=== PATIENT | female | born 1970 | race Two or more races ===

== ENCOUNTER 2017-02-28 09:48 | Emergency (ER) | payer OTHER ==
[2017-02-28 09:53] VITALS: BMI 29.2
[2017-02-28] MEDS ORDERED: SODIUM CHLORIDE 1,000 ML IV STA (10:30)
--- NOTE | 2017-02-28 10:34 | PDOC ---
History of Present Illness - General Chief Complaint: Pain, Acute Stated Complaint: ABD PAIN Time Seen by Provider: 02/28/17 10:09 - History of Present Illness Initial Comments: 02/28/17 10:28 46 yo F with no significant pmh who presents with 1 week of lower abdominal pain. Pt. reports intermittent spasmodic, crampy, lower abdominal pain Q2 hours lasting for seconds with spontaneous resolution. No identifiable triggers or alleviators. Denies N/V, fevers/chills, constipation/diarrhea, chest pain, SOB, back pain, rash, arthralgias. Attempted pepto bismol with no relief of symptoms. Recently returned from trip to [place] 9 days ago. States that in [place] she drank bottled/filtered water everyday. Ate chicken and steak. Denies h/o GI procedures. Past History - Past Medical History Allergies/Adverse Reactions: Allergies Allergy/AdvReac Type Severity Reaction Status Date / Time No Known Allergies Allergy Verified 02/28/17 09:51 Home Medications: Ambulatory Orders Ciprofloxacin [Cipro -] 500 mg PO Q12H #6 tablet 02/28/17 Other medical history: denies - Immunization History Immunization Up to Date: Yes - Psycho/Social/Smoking Cessation Hx Anxiety: No Suicidal Ideation: No Smoking History: Never smoked Have you smoked in the past 12 months: No Hx Alcohol Use: No Drug/Substance Use Hx: No Substance Use Type: None Review of Systems - Review of Systems Comments:: 02/28/17 10:41 GENERAL/CONSTITUTIONAL: No fever or chills. No weakness. HEAD, EYES, EARS, NOSE AND THROAT: No change in vision. No ear pain or discharge. No sore throat.- CARDIOVASCULAR: No chest pain or shortness of breath RESPIRATORY: No cough, wheezing, or hemoptysis. GASTROINTESTINAL:+ Abdominal pain and nausea, vomiting, diarrhea or constipation. GENITOURINARY: No dysuria, frequency, or change in urination. MUSCULOSKELETAL: No joint or muscle swelling or pain. No neck or back pain. SKIN: No rash NEUROLOGIC: No headache, vertigo, loss of consciousness, or change in strength/ sensation. ENDOCRINE: No increased thirst. No abnormal weight change HEMATOLOGIC/LYMPHATIC: No anemia, easy bleeding, or history of blood clots. ALLERGIC/IMMUNOLOGIC: No hives or skin allergy. *Physical Exam - Vital Signs Last Vital Signs Temp Pulse Resp BP Pulse Ox 98.3 F 58 L 18 119/79 100 02/28/17 09:51 02/28/17 09:51 02/28/17 09:51 02/28/17 09:51 02/28/17 09:51 - Physical Exam Comments: 02/28/17 10:42 GENERAL: Awake, alert, and fully oriented, in no acute distress HEAD: No signs of trauma, normocephalic, atraumatic EYES: PERRLA, EOMI, sclera anicteric, conjunctiva clear ENT: Auricles normal inspection, hearing grossly normal, nares patent, oropharynx clear without exudates. Moist mucosa NECK: Normal ROM, supple, no lymphadenopathy, JVD, or masses LUNGS: No distress, speaks full sentences, clear to auscultation bilaterally HEART: Regular rate and rhythm, normal S1 and S2, no murmurs, rubs or gallops, peripheral pulses normal and equal bilaterally. ABDOMEN: TTP RLQ. Soft, nontender, normoactive bowel sounds. No guarding, rigidity, no rebound. No masses EXTREMITIES: Normal inspection, Normal range of motion, no edema. No clubbing or cyanosis. SKIN: Warm, Dry, normal turgor, no rashes or lesions noted. Medical Decision Making - Medical Decision Making 02/28/17 10:43 46 yo F with no significant pmh who presents with 1 week of lower abdominal pain. Pt. reports intermittent spasmodic, crampy, lower abdominal pain Q2 hours lasting for seconds with spontaneous resolution. Associated with soft stools and mild nausea. Physical exam reveals RLQ ttp. Recently returned from trip to [place] 9 days ago. States that in [place] she drank bottled/filtered water everyday. Ate chicken and steak. Denies h/o GI procedures. DDx: Travelers diarrhea, appendicitis ED Course: CBC CMP UA Urine preg 02/28/17 11:14 WBC: 3.2 02/28/17 11:17 UA: Neg 02/28/17 11:22 CMP Unremarkable Stable discharge *DC/Admit/Observation/Transfer Diagnosis at time of Disposition: Travelers' diarrhea - Discharge Dispostion Disposition: HOME Condition at time of disposition: Improved Admit: No - Prescriptions Prescriptions: Ciprofloxacin [Cipro -] 500 mg PO Q12H #6 tablet - Patient Instructions Additional Instructions: Please take antibiotic as prescribed. Return to ED if you experience worsening abdominal pain , blood in stool, or worsening symptoms.
[2017-02-28 10:50] LABS: BASOPHIL 0.5 % (0-2.0); EOSINOPHIL 1.3 % (0-4.5); MCH 26.1 pg (25.7-33.7); MCHC 32.3 g/dl (32.0-36.0); MEAN CELL VOLUME 80.8 fl (80-96); MEAN PLT VOLUME 8.1 fl (7.5-11.1); NEUTROPHILS 59.1 % (42.8-82.8); PLATELET COUNT 303 K/MM3 (134-434); RDW 15.8 % (11.6-15.6); WHITE BLOOD COUNT 3.2 K/mm3 (4.0-10.0)
[2017-02-28 10:56] LABS: URINE APPEARANCE CLEAR; URINE BILIRUBIN NEGATIVE (NEGATIVE); URINE BLOOD NEGATIVE (NEGATIVE); URINE COLOR LTYELLOW; URINE GLUCOSE (UA) NEGATIVE (NEGATIVE); URINE KETONE NEGATIVE (NEGATIVE); URINE LEUK ESTERASE NEGATIVE (NEGATIVE); URINE NITRITE NEGATIVE (NEGATIVE); URINE PROTEIN NEGATIVE (NEGATIVE); URINE UROBILINOGEN NEGATIVE mg/dL (0.2-1.0)
--- NOTE | 2017-02-28 11:10 | PDOC ---
Attending Attestation - Resident Resident Name: Balbir Oates - ED Attending Attestation I have performed the following: I have examined & evaluated the patient, The case was reviewed & discussed with the resident, I agree w/resident's findings & plan, Exceptions are as noted - HPI HPI: 02/28/17 10:52 46-year-old female no medical history presents with abdominal cramping and loose stools for one week. Patient recently traveled from [facility] and medication. Subsequently returned and 5 days ago started developing loose stools and intermittent lower abdominal cramping. She denies sharp pain, nausea or vomiting or loss of appetite. Denies fevers or chills. Patient reports that the cramping comes and goes but has not improved. - Physicial Exam PE: 02/28/17 11:10 GENERAL: Awake, alert, and fully oriented, in no acute distress. HEAD: No signs of trauma EYES: PERRLA, EOMI, sclera anicteric, conjunctiva clear ENT: Auricles normal inspection, hearing grossly normal, nares patent, oropharynx clear without exudates. NECK: Normal ROM, supple, no lymphadenopathy, JVD, or masses LUNGS: Breath sounds equal, clear to auscultation bilaterally. No wheezes, and no crackles HEART: Regular rate and rhythm, normal S1 and S2, no murmurs, rubs or gallops ABDOMEN: Soft, nontender, normoactive bowel sounds. No guarding, no rebound. No masses EXTREMITIES: Normal range of motion, no edema. No clubbing or cyanosis. No cords, erythema, or tenderness NEUROLOGICAL: Cranial nerves II through XII grossly intact. Normal speech, normal gait SKIN: Warm, Dry, normal turgor, no rashes or lesions noted. - Medical Decision Making 02/28/17 11:11 Vital Signs Temp Pulse Resp BP Pulse Ox 98.3 F 58 L 18 119/79 100 02/28/17 09:51 02/28/17 09:51 02/28/17 09:51 02/28/17 09:51 02/28/17 09:51 The patient did have some mild right lower quadrant tenderness to my resident's exam but on my exam, patient had no abdominal tenderness. Patient reported the pain is intermittent and not always constant has been tolerating by mouth for last couple days. My suspicion is that this is likely traveler's diarrhea and will benefit for ciprofloxacin. However, after discussion with the patient, the patient prefers not to have the radiation from a CAT scan. I discussed that if the patient has recurrence of her lower quadrant pain and/or very abnormal labs , we will consider CAT scan rule out appendicitis. Labs, IV fluids, reassess. 02/28/17 11:28 CBC, BMP 02/28/17 10:30 02/28/17 10:30 CMP Sodium 139 mmol/L (136-145) 02/28/17 10:30 Potassium 3.6 mmol/L (3.5-5.1) 02/28/17 10:30 Chloride 102 mmol/L (98-107) 02/28/17 10:30 Carbon Dioxide 30 mmol/L (21-32) 02/28/17 10:30 Anion Gap 7 (8-16) L 02/28/17 10:30 BUN 10 mg/dL (7-18) D 02/28/17 10:30 Creatinine 0.9 mg/dL (0.55-1.02) D 02/28/17 10:30 Creat Clearance w eGFR > 60 (>60) 02/28/17 10:30 Random Glucose 85 mg/dL (74-106) 02/28/17 10:30 Calcium 8.8 mg/dL (8.5-10.1) 02/28/17 10:30 Total Bilirubin 0.4 mg/dL (0.2-1.0) 02/28/17 10:30 AST 18 U/L (15-37) 02/28/17 10:30 ALT 27 U/L (12-78) 02/28/17 10:30 Alkaline Phosphatase 63 U/L (45-117) 02/28/17 10:30 Total Protein 8.0 g/dl (6.4-8.2) 02/28/17 10:30 Albumin 3.8 g/dl (3.4-5.0) 02/28/17 10:30 Urine Test Results Urine Color Ltyellow 02/28/17 10:29 Urine Appearance Clear 02/28/17 10:29 Urine pH 6.0 (5.0-8.0) 02/28/17 10:29 Urine Protein Negative (NEGATIVE) 02/28/17 10:29 Urine Glucose (UA) Negative (NEGATIVE) 02/28/17 10:29 Urine Ketones Negative (NEGATIVE) 02/28/17 10:29 Urine Blood Negative (NEGATIVE) 02/28/17 10:29 Urine Nitrite Negative (NEGATIVE) 02/28/17 10:29 Urine Bilirubin Negative (NEGATIVE) 02/28/17 10:29 Ur Leukocyte Esterase Negative (NEGATIVE) 02/28/17 10:29 Pt feeling better. Ciprofloxacin for traveller's diarrhea. Supportive care and oral rehydration.
[2017-02-28] MEDS ORDERED: LEVOFLOXACIN 500 MG TABLET (FP) PO ONE (11:14)
[2017-02-28 11:16] LABS: ALBUMIN 3.8 g/dl (3.4-5.0); ALK PHOS 63 U/L (45-117); ANION GAP 7 (8-16); BILIRUBIN,TOTAL 0.4 mg/dL (0.2-1.0); CALCIUM 8.8 mg/dL (8.5-10.1); CO2 30 mmol/L (21-32); CREATININE 0.9 mg/dL (0.55-1.02); GLUCOSE,RANDOM 85 mg/dL (74-106); SGOT/AST 18 U/L (15-37); SGPT/ALT 27 U/L (12-78)
[2017-02-28] MEDS ORDERED: MAG HYDROX/AL HYDROX/SIMETH 30 ML UNIT-DOSE CUP PO ONE (11:17)
[2017-02-28] MEDS ORDERED: LEVOFLOXACIN 500 MG TABLET (FP) ONE (11:32)
[2017-02-28] MEDS ORDERED: MAG HYDROX/AL HYDROX/SIMETH 30 ML UNIT-DOSE CUP ONE (11:33)
[2017-02-28 11:46] VITALS: BP 140/75; PULSE 77; TEMP 98.7
== END 2017-02-28 11:46 | disposition home or self-care (01) ==
LOC: JER 09:48
PROC: 3E0337Z Introduction of Electrolytic and Water Balance Substance into Peripheral Vein, Percutaneous Approach (ICD-10-PCS; principal; 2017-02-28)
DX: A08.8 Other specified intestinal infections (principal)
CPT/HCPCS: 36415; 80053; 81003; 84703; 85025; 99284-25